=== PATIENT | male | born 1950 | race Hispanic/Latino ===

== ENCOUNTER → 2020-08-01 | Outpatient (CLI) | payer MEDICARE ==
[~2020-08-01] MED LIST: GADOBENATE DIMEGLUMINE 1 ML IV ONE
[2020-08-01 10:02] LABS: BLOOD UREA NITROGEN 11 mg/dL (7-26); BUN/CREATININE RATIO 12 (6-25); CREATININE, SERUM 0.93 mg/dL (0.72-1.25); EST GLOMERULAR FILTRATION RATE > 60 ML/MIN (60-)
== END ==
LOC: MRI 09:10
PROVIDERS: ATTEND Family Medicine
DX: H53.8 Other visual disturbances (principal); R53.83 Other fatigue
CPT/HCPCS: 36415; 70553; 82565; 84520